=== PATIENT | female | born 1970 | race African-American/Black ===

== ENCOUNTER 2020-04-23 10:54 | Outpatient (CLI) | payer OTHER, SELFPAY ==
--- NOTE | ~2020-04-23 | MM_ITS ---
EXAMINATION: MM screening [facility] BI w frances HISTORY: Screening mammogram TECHNIQUE: Craniocaudal and mediolateral oblique 3-D tomosynthesis images were obtained and synthetic 2-D images were generated. CAD analysis was submitted and interpreted. COMPARISON: 01/15/2019, 12/28/2018, 06/24/2017, 04/30/2016 BREAST PARENCHYMAL COMPOSITION: There are scattered areas of fibroglandular density. FINDINGS: RIGHT BREAST: There is no evidence of suspicious mass, calcification, or architectural distortion to suggest malignancy. There has been no significant interval change. LEFT BREAST: There are indeterminate calcifications in the middle/posterior third of the slightly out er breast 8 cm from the nipple. IMPRESSION: 1. Indeterminate left breast calcifications. 2. Magnification views are recommended. BI-RADS Category 0: Incomplete: Needs additional imaging evaluation. Reviewed, dictated and finalized at location A. KLE STRAP SEWER
== END 2020-04-23 10:55 | disposition home or self-care (01) ==
LOC: ANHIMG 10:57
PROVIDERS: PCP Obstetrics & Gynecology; Visit Provider Obstetrics & Gynecology
DX: Z12.31 Encounter for screening mammogram for malignant neoplasm of breast (principal); R91.8 Other nonspecific abnormal finding of lung field
CPT/HCPCS: 77063; 77067

== ENCOUNTER 2020-05-29 12:12 | Outpatient (CLI) | payer OTHER, SELFPAY ==
--- NOTE | ~2020-05-29 | MM_ITS ---
EXAMINATION: MM diagnostic mammo unilat LT HISTORY: Indeterminate left breast calcifications on screening mammogram TECHNIQUE: Additional images of the right breast were performed. CAD analysis was submitted and inter preted. COMPARISON: 04/23/2020, 01/15/2019, 12/28/2018 FINDINGS: There are grouped calcifications in the middle/posterior third of the central breast at the 2:00 location 9 cm deep to the nipple. Many appear round in morphology and not significantly differe nt from other groups of calcifications in the breast. In addition, it have a stable appearance when c ompared to diagnostic mammogram performed on 01/15/2019. IMPRESSION: 1. Probably benign left breast calcifications. 2. Recommend 6 month follow-up left diagnostic mammogram. BI-RADS category 3, probably benign findings. Reviewed, dictated and finalized at location A. E SEINING HAND
== END 2020-05-29 12:13 | disposition home or self-care (01) ==
LOC: ANHIMG 12:15
PROVIDERS: PCP Obstetrics & Gynecology; Visit Provider Obstetrics & Gynecology
DX: R92.8 Other abnormal and inconclusive findings on diagnostic imaging of breast (principal)
CPT/HCPCS: 77065

== ENCOUNTER 2023-08-19 08:10 | Outpatient (CLI) | payer OTHER, BC, SELFPAY ==
--- NOTE | ~2023-08-19 | US_ITS ---
EXAMINATION: US pelvic complete w TV DATE: 08/19/2023 09:22 INDICATION: Abnormal uterine and vaginal bleeding TECHNIQUE: Multiple transabdominal and endovaginal sonographic images of the pelvis were obtained. COMPARISON: 12/28/2018 FINDINGS: The uterus measures 11.7 x 7.3 x 8.0 cm. There are multiple uterine masses with the appeara nce of intramural fibroids which have increased in size and number. The largest measures approximatel y 5.6 cm in the posterior uterine body. The endometrial complex measures approximately 3 mm. The ovar ies are not visualized however no adnexal abnormality is seen. There is no free fluid in the pelvis. IMPRESSION: 1. Multiple uterine fibroids with interval increase in size and number, the largest measuring approxi mately 5.6 cm in the posterior uterine body. Reviewed, dictated and finalized at location B. TAL CARTOGRAPHER IMPRESSION: 1. Multiple uterine fibroids with interval increase in size and number, the lar gest measuring approximately 5.6 cm in the posterior uterine body.
== END 2023-08-19 08:11 | disposition home or self-care (01) ==
PROVIDERS: Visit Provider Registered Nurse
DX: D25.9 Leiomyoma of uterus, unspecified (principal); N93.9 Abnormal uterine and vaginal bleeding, unspecified
CPT/HCPCS: 76830; 76856

== ENCOUNTER 2023-10-19 08:27 | Outpatient (CLI) | payer OTHER, SELFPAY ==
--- NOTE | ~2023-10-19 | MM_ITS ---
EXAMINATION: MM screening [facility] BI w frances HISTORY: Screening mammogram TECHNIQUE: Craniocaudal and mediolateral oblique 3-D tomosynthesis images were obtained and synthetic 2-D images were generated. CAD analysis was submitted and interpreted. COMPARISON: 05/29/2020 left mammogram 04/23/2020 bilateral screening mammogram BREAST PARENCHYMAL COMPOSITION: There are scattered areas of fibroglandular density. FINDINGS: Scattered bilateral benign appearing calcifications are again noted, increased in number si nce 04/23/2020. There is no evidence of suspicious mass, calcification, or architectural distortion t o suggest malignancy in either breast. There has been no suspicious interval change. IMPRESSION: 1. Benign appearing calcifications. No mammographic evidence of malignancy. 2. Recommend routine screening mammography in one year. BI-RADS Category 2: Benign finding(s). Reviewed, dictated and finalized at location A.
== END 2023-10-19 08:28 | disposition home or self-care (01) ==
LOC: ANHIMG 08:29
PROVIDERS: PCP Family Medicine; Visit Provider Registered Nurse
DX: Z12.31 Encounter for screening mammogram for malignant neoplasm of breast (principal)
CPT/HCPCS: 77063; 77067

== ENCOUNTER 2024-02-29 09:50 | Outpatient (CLI) | payer OTHER, SELFPAY ==
[2024-02-29 10:10] LABS: Hematocrit 44.6 % (37.0-47.0); Mean Corpuscular HGB Conc 31.4 g/dl (32-36); Mean Corpuscular Hemoglobin 27.2 pg (26-34); Mean Corpuscular Volume 86.6 fl (80-100); Platelet Count Result 348 k/mm3 (150-375); Red Blood Count 5.15 M/mm3 (4.2-5.4); Red Cell Distribution Width 15.2 % (11.5-14.5); White Blood Count 7.8 K/mm3 (4.5-10.0)
--- NOTE | 2024-02-29 10:56 | ECG_ITS ---
Test Date: 2024-02-29 10:11:06 Measurements Intervals [place] Rate: 72 P: 61 MN: 180 QRS: -2 QRSD: 77 T: -18 QT: 359 QTc: 393 Interpretive Statements SINUS RHYTHM NONSPECIFIC ST-T WAVE ABNORMALITY- INFERIOR LEADS BORDERLINE ECG No previous ECG available for comparison Electronically Signed On 02-29-2024 11:19:49 CDT by Frankie Mendenhall D.O.
== END 2024-02-29 09:51 | disposition home or self-care (01) ==
LOC: ANHLAB 09:51
PROVIDERS: PCP Family Medicine; Visit Provider Obstetrics & Gynecology
DX: Z01.818 Encounter for other preprocedural examination (principal); R94.31 Abnormal electrocardiogram [ECG] [EKG]
CPT/HCPCS: 36415; 85027; 93005

== ENCOUNTER 2024-03-02 15:03 | Outpatient (CLI) | payer OTHER, SELFPAY ==
[2024-03-02 15:56] LABS: Anion Gap 10 mmol/L (4-12); Blood Urea Nitrogen 13 mg/dL (7-17); Calcium 9.3 mg/dL (8.4-10.2); Carbon Dioxide 27 mmol/L (22-30); Chloride 101 mmol/L (98-107); Estimated Glomerular Filt Rate > 60; Glucose 77 mg/dL (65-110); Potassium 3.8 mmol/L (3.4-5.0); Sodium 138 mmol/L (137-145)
== END 2024-03-02 15:04 | disposition home or self-care (01) ==
LOC: ANHLAB 15:04
PROVIDERS: PCP Family Medicine; Visit Provider Obstetrics & Gynecology
DX: Z01.818 Encounter for other preprocedural examination (principal); N93.9 Abnormal uterine and vaginal bleeding, unspecified
CPT/HCPCS: 36415; 80048; 86850; 86900; 86901

== ENCOUNTER 2024-03-07 01:53 | Day surgery (SDC) | payer OTHER, SELFPAY ==
[2024-03-01 14:16] VITALS: BMI 49.1
--- NOTE | 2024-03-01 14:25 | PC.NURSE ---
Report to the Outpatient Waiting Room, entrance under the green pavilion located off [facility], at time _0600_ on date _03/07/24 . Planned Procedure Time: __0730_.? Time changes happen often and if your time is changed the preop area will call you the afternoon before. - You and your visitor will be asked to self-screen and do not enter if you have any COVID symptoms. Please call surgeon if you need to reschedule. - A mask is optional within the hospital at this time. Patients may have clear liquids (water, carbonated beverages, clear teas, apple juice) until 3 hours prior to surgery with a maximum of 20 ounces. - No food from midnight until time of surgery and no smoking - Infants may have breast milk until 4 hours before surgery, formula 6 hours prior to surgery. - Children will be allowed to drink immediately following surgery.? If applicable, please bring a bottle or sippy cup to assist with drinking. Juice, water, soda, and popsicles are readily available.? For infants on formula, please bring formula the day of surgery.? Pacifiers are allowed. Take only the following medications with a SIP of water on the morning of surgery: INHALER IF NEEDED DO NOT STOP ANY OF YOUR OTHER PRESCRIPTION MEDICATIONS PRIOR TO SURGERY EXCEPT THE FOLLOWING Medications to discontinue per physician NONE Date to take last dose Please no make-up, nail estonian, hairspray, perfume, deodorant, or body powder the day of surgery.? No jewelry (including any body piercings) or valuables the day of surgery, leave them at home.? Please take a shower or bath the night before, or the morning of, surgery with an antibacterial soap.? Wear comfortable, loose fitting clothing.? Children are encouraged to wear pajamas. - Jewelry must be removed prior to entering the operating room.? Rings and piercings that are not removed may be cut off. - The hospital will not accept responsibility for valuables.? - Please leave all valuables, including medications, at home the day of surgery. If you are going home after surgery, a licensed production truck driver must drive you home.? - NO public transportation without another adult if you receive anesthesia. - We recommend that an adult stay with you for 24 hours following discharge. - We also recommend that you do not drive, make important decision, drink alcoholic beverages, or take any drugs that were not prescribed by your health care provider for at least 24 hours after your discharge time. For Pediatric surgeries, we recommend two adults accompany the child home. Follow any additional instructions given to you from your surgeon. Telephone instructions given to ___PATIENT_and asked if any additional questions and then verbalized understanding. Patient advised to call surgeon office or pre surgery nurse liaison [phone] if any additional questions.
[2024-03-07] VITALS (11 sets, daily range): BP systolic 115–149; BP diastolic 58–91; PULSE 68–86; RESP 14–20; TEMP 36.1–37.1; O2SAT 94–100; BMI 50.0
[2024-03-07] MEDS: LACTATED RINGERS 1,000 ML 30 ML IV CONT ×2 (06:40→11:23)
[2024-03-07 06:51] LABS: Glucose Point of Care 107 mg/dl (65-105)
--- NOTE | 2024-03-07 06:51 | P.PNAN_ITS ---
Anes - Initial Pre Proc Eval Procedure: Operation Date: 03/07/24 07:30 Proposed Procedures p Robotic Laparoscopic Assisted Total Vaginal Hysterectomy - Dipak Cano MD Date/Time: 03/07/24 06:51 Surgeon: Dipak Cano MD Pre Op Diagnosis: fibroid uterus, mennorhagia Patient Data Age: 53 Gender: F Height: 1.57 m Weight: 122 kg Allergies Allergy/AdvReac Type Severity Reaction Status Date / Time No Known Drug Allergies Allergy Unknown Unknown Verified 03/01/24 14:13 Home Medications Medication Instructions Recorded Confirmed Type albuterol sulfate 90 mcg/actuation 1 inh inhalation Q4-6H PRN 05/11/23 03/07/24 History breath activated powder inhaler Shortness Of Breath Or Wheezing levonorgestrel 21 mcg/24 hr (up to 1 device intrauterine ONCE 05/11/23 03/07/24 History 8 years) 52 mg intrauterine device (Mirena) rosuvastatin 10 mg tablet 10 mg PO DAILY 05/11/23 03/07/24 History spironolactone 100 mg tablet 100 mg PO DAILY 05/11/23 03/07/24 History tirzepatide 7.5 mg/0.5 mL 7.5 mg subcut WEEKLY 05/11/23 03/07/24 History subcutaneous pen injector (Mounjaro) polyethylene glycol 3350 17 gram 17 g PO DAILY 03/01/24 03/01/24 History oral powder packet (Miralax) Patient hx anesthesia problems: none Family hx anesthesia problems: none Results Review: All pre-operative results and documents have been reviewed as part of the pre- operative evaluation. [facility] Past Medical History Medical History (Updated 03/07/24 @ 06:51 by Lonnie Estrada MD) Arthritis Asthma Diabetes Morbid obesity PCOS (polycystic ovarian syndrome) Family History Family History Sibling Diabetes mellitus Father Hypertension Cerebrovascular accident Mother Hypertension Other Carcinoma of colon Family history of malignant neoplasm of cervix Social History Social History Smoking status: Never smoker Second hand tobacco smoke exposure: No Alcohol intake: current Alcohol use details: 2 PER MONTH Substance use: never Substance use type: does not use Lack of Transportation: No Lack of Food: Never True Current Housing: I Have Housing Concerned About Future Housing: No Difficulty Paying Gas/Electric Bills: No Difficulty Paying for Meds: No Currently Unemployed: No Education: Master's Degree or Higher Difficulty w/ Childcare or Family Care: No Living arrangements: with family João Sparrow Final PreProcedure Day of Procedure 03/07/24 06:51 Patient weight: morbidly obese Heart: regular rate and rhythm Lungs: clear to auscultation Airway: Mallampati scale class III Neurological: alert and oriented Last oral intake: >/= 8 hours ASA classification: III Emergent: no Anesthetic plan: proceed Anesthesia type and monitoring: general ETT and standard monitoring Results Review: All pre-operative results and documents have been reviewed as part of the pre- operative evaluation. Informed Consent: The patient's anesthetic plan and its attendant risks and benefits were discussed with the patient/family/POA. Questions were solicited and answers provided to the satisfaction of the patient/family/POA.
--- NOTE | 2024-03-07 07:20 | WPDHPUPDATE1 ---
History and Physical Update Update Date/Time: 03/07/24 07:20 History and Physical has been reviewed, including an updated exam of the patient. There are NO changes in the patient's condition. Risks, benefits, and alternatives have been discussed and questions answered. Patient agrees to proceed with procedure.
[2024-03-07] MEDS: ENOXAPARIN 40 MG/0.4 ML SYRINGE SUB-Q (07:21)
[2024-03-07] MEDS: KETOROLAC 15 MG/ML VIAL (*BKC) IV PUSH (07:25)
[2024-03-07] MEDS: ACETAMINOPHEN 500 MG TABLET 1000 MG PO (07:25)
[2024-03-07] MEDS: SCOPOLAMINE 1 MG PATCH 1 PATCH TRANSDERM (07:25)
[2024-03-07] MEDS: ceFAZolin 3 GM/D5W 100 ML 100 ML IVPB (07:33)
[2024-03-07 07:38] LABS: BEDSIDEPREGUCG Negative (Negative)
[2024-03-07] MEDS: BUPivacaine HCL 0.25% PF 30 ML VIAL INFILTRATE (08:44)
--- NOTE | 2024-03-07 10:53 | PM.OP ---
Procedure Note - Brief Procedure Note - Brief Date of procedure: 03/07/24 fibroid uterus, mennorhagia Post-op diagnosis: Same Procedure performed: 1. Laparoscopic robotic assisted total vaginal hysterectomy with bilateral salpingo-oophorectomy. 2. Cystoscopy Surgeon: Dipak Cano MD Anesthesia: GETA Estimated blood loss (mL): 50 IV fluids (mL): 1,300 Urine output (mL): 300 Drains: No Packing: No Pathology: Yes (fibroid uterus in multiple segments with right and left fallopian tubes and ovaries) Complications: No immediate complications Condition: Stable Disposition: PACU
[2024-03-07 11:51] LABS: Glucose Point of Care 123 mg/dl (65-105)
--- NOTE | 2024-03-07 13:19 | ADMGEN ---
1310-This patient, Angelica Robins, was admitted to OB 2nd Floor Room 283-00. Patient/family oriented to hospital policies and general routines including ID bracelet, bed and alarms, visiting hours, pain management, procedures, bathroom and other care routines, personal items, smoking policy, room service/diet, and visiting hours. Information on how to activate the Rapid Response Team has been discussed. Patient/Family are encouraged to report perceived risks to care and to ask questions if they do not understand what they are told or what they should do.
[2024-03-07] MEDS: SIMETHICONE 80 MG TAB.CHEW PO ×2 (13:36→17:18)
[2024-03-07] MEDS: KETOROLAC 30 MG/ML VIAL (*BKC) IV PUSH ×2 (13:36→20:40)
[2024-03-07] MEDS: DEXTROSE 5%/0.45% SOD CHL 1,000 ML 125 ML IV CONT (13:36)
[2024-03-07] MEDS: ceFAZolin 1 GM/NS 50 ML 1 GM/50 ML BAG IVPB ×2 (15:10→23:02)
[2024-03-07] MEDS: HYDROcodone/acetaminophen (*CRX) 5-325 MG TABLET 1 TAB PO ×2 (17:18→20:40)
--- NOTE | 2024-03-07 20:00 | W.PM.PROC2 ---
Procedure Note - Detailed Date of Procedure 03/07/24 Pre-op Diagnosis fibroid uterus, mennorhagia Post-op Diagnosis Same Procedure Performed 1. Laparoscopic robotic assisted total hysterectomy and bilateral salpingo-oophorectomy. 2. Cystoscopy Surgeon Dipak Cano MD Cracking Still Operator Bobby Anesthesia General Indications Patient with history of menometorrhagia resistance to medical management. She request definitive treatment with hysterectomy. Findings Uterus approximated 14-16 week size, multiple fibroids, polyp appearing structure in cavity, normal fallopian tubes and ovaries bilaterally. Normal bladder cavity, ureteral jetting visualized bilaterally. Description of Procedure After informed consent was obtained she was taken to the operating room and general endotracheal anesthesia was administered. She was placed in low lithotomy position. An exam under anesthesia was performed. Uterus mildly enlarged retroverted, no adnexal masses palpated. She was and prepped and draped in sterile fashion. Garcia catheter placed in bladder. Attention was turned to the vagina speculum was inserted. Single-tooth tenaculum placed on anterior lip of the cervix the uterus sounded to 11 cm. The cervix was dilated to a 8 Page dilator. A size 10 uterine manipulator was inserted and secured. A size 3.0 colp cup was secured in the vagina. Then attention was turned to the abdomen with new sterile gloves. .25% marcaine injected subcutaneously. An incision was made horizontal 2 cm above the umbilicus. A verress needle was inserted. Confirmation into abdomen obtained with normal peritoneal pressures. A Pneumoperitoneum of 15 mm per mercury was obtained. .25% Marcaine injected subcutaneously before each incision. An 8mm robotic port was inserted under laparoscopic visualization. No abdominal or pelvic adhesions noted. A small incision was made approximately 6 cm lateral to the port on the left side of the port. A size 8mm robotic port was inserted under laparoscopic visualization into the abdomen on the left side. Another incision was made inferior to this and an 8mm port inserted. Attention was then turned to the right side and marcaine injected subcutaneously and an incision was made and superior and medial to this. An 8mm port inserted and 10mm contact center assistant port inserted. Attention was turned to the surgery console. The right round ligament was ligated. The right broad ligament was dissected anteriorly. The right side of the bladder was dissected from the lower uterine segment and upper cervix. The right infundibulum pelvic ligament was ligated with the vessel sealer. The ascending uterine vessels were ligated. The uterine artery was ligated. Attention was turned to the left round ligament which was ligated and the anterior leaf of the broad ligament was dissected anteriorly. The rest of the vesicouterine peritoneum was dissected off of the uterus. Once the bladder was dissected below the colp cup then the infundibular pelvic ligament was ligated. The ascending uterine vessels were ligated. The uterine arteries were ligated. The cardinal ligaments were ligated. This was done on both sides. An incision was made anteriorly and a colpotomy incision was made and this was carried around to posterior. The uterus was incision from superior to cervix at four incisions. The uterus was attempted to be removed through the vagina but had to be removed in pieces and grasped through vagina until all of fibroid uterus and cervix removed. The pelvis was vigorously irrigated. The vaginal cuff was closed in a running fashion with 0 V lock suture. Hemostasis was noted. Hemoderm was applied in the pelvis. The patient was taken out of Trendelenburg position. A cystoscopy was performed. Bladder cavity normal and normal jetting visualized from both ureter orifi. The pneumoperitoneum was released and the ports were removed. The skin incisions were closed with 4 O Vicryl and dermabond. The pa
[2024-03-07] MEDS: SENNA/DOCUSATE SODIUM TABLET 2 TAB PO (20:40)
[2024-03-08 03:10] VITALS: BP 131/68; PULSE 76; RESP 12; TEMP 36.9; O2SAT 96
[2024-03-08] MEDS: HYDROcodone/acetaminophen (*CRX) 5-325 MG TABLET 1 TAB PO ×2 (07:19→12:10)
[2024-03-08] MEDS: IBUPROFEN 600 MG TABLET PO (07:19)
[2024-03-08] MEDS: ceFAZolin 1 GM/NS 50 ML 1 GM/50 ML BAG IVPB (07:25)
[2024-03-08] MEDS: polyethylene glycoL 3350 17 GM POWD.PACK PO (08:12)
[2024-03-08] MEDS: SIMETHICONE 80 MG TAB.CHEW PO ×2 (08:12→12:07)
[2024-03-08] MEDS: INFLUENZA TRIVALENT VACCINE 45 MCG/0.5 ML SYRINGE IM (08:12)
[2024-03-08] MEDS: ROSUVASTATIN 10 MG TABLET PO (08:12)
[2024-03-08 08:55] VITALS: BP 126/75; PULSE 71; RESP 18; TEMP 36.6; O2SAT 97
--- NOTE | 2024-03-08 13:58 | WPDANESPN ---
Anes - Prog Note Post-Op Date/Time: 03/08/24 13:58 Cardiovascular status: normal Respiratory status: normal Airway patency: baseline Mental status: baseline Post-Op hydration status: normal Vital Signs: Last Vital Signs Temp 36.6 C 03/08/24 08:55 Pulse 71 03/08/24 08:55 Resp 18 03/08/24 08:55 BP 126/75 03/08/24 08:55 Pulse Ox 97 03/08/24 08:55 O2 Del Method Room Air 03/07/24 13:00 O2 Flow Rate 03/07/24 11:30 Pain Score (VAS): 310 I/O: Intake & Output 03/07/24 03/08/24 03/08/24 23:59 07:59 15:59 Intake Total 2550 625 240 Output Total 600 800 300 Balance 1950 -175 -60 Post-procedural complaints: none Patient Feedback: Patient satisfied with anesthetic care.
== END 2024-03-08 15:05 | disposition home or self-care (01) ==
LOC: ANHSURGERY 07:37 → ANHOB2 13:01
PROVIDERS: PCP Family Medicine; Visit Provider Obstetrics & Gynecology
PROC: (CPT 58573; principal; 2024-03-07 07:30)
DX: N92.0 Excessive and frequent menstruation with regular cycle (principal); N72 Inflammatory disease of cervix uteri; N88.8 Other specified noninflammatory disorders of cervix uteri; N84.0 Polyp of corpus uteri; D25.9 Leiomyoma of uterus, unspecified; N83.8 Other noninflammatory disorders of ovary, fallopian tube and broad ligament; Z23 Encounter for immunization; E11.9 Type 2 diabetes mellitus without complications; J45.909 Unspecified asthma, uncomplicated; E28.2 Polycystic ovarian syndrome; E66.01 Morbid (severe) obesity due to excess calories; Z68.43 Body mass index [BMI] 50.0-59.9, adult; Z79.51 Long term (current) use of inhaled steroids; Z79.85 Long-term (current) use of injectable non-insulin antidiabetic drugs
CPT/HCPCS: 58573; S2900; 36415; 80048; 82948; 85027; 86850; 86900; 86901; 88307; 90471; 90656; 93005; 99199; A9270; G0008; J0690; J1100; J1170; J1650; J1885; J2250; J2405; J2704; J3010; J7030; J7120